=== PATIENT | female | born 1990 | race Caucasian/White ===

== ENCOUNTER 2020-11-09 14:16 | Inpatient (IN) | payer BC, SELFPAY ==
[2020-11-09] VITALS (73 sets, daily range): BP systolic 90–133; BP diastolic 54–87; PULSE 52–115; RESP 18; TEMP 36.4–37.2; O2SAT 88–100; BMI 25.7
[2020-11-09] MEDS: LACTATED RINGERS 1,000 ML 125 ML IV CONT (15:00)
[2020-11-09 15:07] LABS: Basophils Percent Auto 0.4 % (0.2-1.2); Eosinophils Absolute Auto 0.1 K/mm3 (0-0.3); Eosinophils Percent Auto 0.8 % (0-4.4); Hematocrit 38.8 % (37.0-47.0); Hemoglobin 12.8 g/dL (12.0-15.0); Immature Granulocyte Absolute 0.11 K/mm3 (0.00-0.031); Immature Granulocyte Percent A 1.5 % (0-0.5); Lymphocytes Absolute Auto 1.03 K/mm3 (0.9-3.2); Lymphocytes Percent Auto 14.4 % (18.3-44.2); Mean Corpuscular Hemoglobin 27.9 pg (26-34); Mean Corpuscular Volume 84.7 fl (80-100); Mean Platelet Volume 9.6 fl (7.4-10.4); Monocytes Absolute Auto 0.7 K/mm3 (0.1-0.6); Monocytes Percent Auto 9.3 % (2.6-8.5); Neutrophils Absolute Auto 5.2 K/mm3 (1.3-6.7); Neutrophils Percent Auto 73.6 % (45.5-73.1); Platelet Count Result 189 k/mm3 (150-375); Red Blood Count 4.58 M/mm3 (4.2-5.4); Red Cell Distribution Width 17.5 % (11.5-14.5); White Blood Count 7.1 K/mm3 (4.5-10.0)
--- NOTE | 2020-11-09 15:37 | WPDANESEPPF ---
Anes - Initial Pre Proc Eval Date/Time: 11/09/20 15:37 Surgeon: Roberth Vargas MD Pre Op Diagnosis: labor Patient Data Age: 29 Gender: F Height: Weight: Last Vital Signs Pulse 81 11/09/20 15:35 BP 113/72 11/09/20 15:35 Pulse Ox 100 11/09/20 15:33 Allergies Allergy/AdvReac Type Severity Reaction Status Date / Time amoxicillin Allergy Unknown Unverified 01/04/18 14:50 Penicillins Allergy Unknown Unverified 01/04/18 14:50 Home Medications Medication Instructions Recorded Confirmed Type PNV cmb#95-ferrous fumarate-FA 1 tablet PO DAILY 10/17/20 10/17/20 History [] ferrous sulfate [Iron (ferrous 325 mg PO DAILY 10/17/20 10/17/20 History sulfate)] loratadine [Claritin] 10 mg PO DAILY 10/17/20 10/17/20 History Laboratory Tests 11/09/20 11/09/20 14:59 14:59 WBC 7.1 K/mm3 K/mm3 (4.5-10.0) RBC 4.58 M/mm3 M/mm3 (4.2-5.4) Hgb 12.8 g/dL g/dL (12.0-15.0) Hct 38.8 % % (37.0-47.0) MCV 84.7 fl fl (80-100) MCH 27.9 pg pg (26-34) MCHC 33.0 g/dl g/dl (32-36) RDW 17.5 % H % (11.5-14.5) Plt Count 189 k/mm3 k/mm3 (150-375) MPV 9.6 fl fl (7.4-10.4) Immature Gran % (Auto) 1.5 % H % (0-0.5) Neut % (Auto) 73.6 % H % (45.5-73.1) Lymph % (Auto) 14.4 % L % (18.3-44.2) [place] % (Auto) 9.3 % H % (2.6-8.5) Eos % (Auto) 0.8 % % (0-4.4) Baso % (Auto) 0.4 % % (0.2-1.2) Lymph # (Auto) 1.03 K/mm3 K/mm3 (0.9-3.2) [place] # (Auto) 0.7 K/mm3 H K/mm3 (0.1-0.6) Eos # (Auto) 0.1 K/mm3 K/mm3 (0-0.3) Baso # (Auto) 0.0 K/mm3 K/mm3 (0.0-0.1) Abs Immat Gran (auto) 0.11 K/mm3 H K/mm3 (0.00-0.031) Absolute Neuts (auto) 5.2 K/mm3 K/mm3 (1.3-6.7) Absolute Nucleated RBC 0.0 K/mm3 K/mm3 (0.0-0.012) Nucleated RBC % 0.0 % % (0.0-0.2) RPR Pending Patient hx anesthesia problems: none Family hx anesthesia problems: none [facility] Family History Family History (Updated 10/17/20 @ 14:39 by Maira Chou RN) Father Hypertension Social History Social History Substance use: never Gender identity (if verbalized by the patient): Female Spiritual care concerns: No Anes - Eval Final PreProcedure Day of Procedure 11/09/20 15:37 Patient weight: overweight Heart: regular rate and rhythm Lungs: clear to auscultation and normal air movement Airway: Mallampati scale class II Neurological: alert and oriented Last oral intake: >/= 8 hours ASA classification: II Emergent: no Anesthetic plan: proceed Anesthesia type and monitoring: regional epidural Informed Consent: The patient's anesthetic plan and its attendant risks and benefits were discussed with the patient/family/POA. Questions were solicited and answers provided to the satisfaction of the patient/family/POA.
--- NOTE | 2020-11-09 16:08 | LDADM ---
This patient, Monse Tellez, was admitted to Labor/Delivery/Recovery 109 on 11/09/20 at 14:16. Plans for labor, pain management and were discussed with patient. Patient/family oriented to hospital policies and general routines including ID bracelet, bed and alarms, visiting hours, pain management, procedures, bathroom and other care routines, personal items, smoking policy, room service/diet and guest tray routines, security routines, call light, and visiting hours. Patient/Family are encouraged to report perceived risks to care and to ask questions if they do not understand what they are told or what they should do. See OBIX for further documentation.
--- NOTE | 2020-11-09 17:37 | PM.IMHP ---
H&P: HPI History of Present Illness Date/Time: 11/09/20 17:37 Chief Complaint: Patient is 2 para 1 at 39-,2/7 weeks gestation with spontaneous rupture membranes prior to admission. Her has been uncomplicated. She is negative for group B strep Review of Systems Review of Systems: All systems reviewed & are unremarkable except as noted in HPI and below PMFSH Family History Family History Father Hypertension Social History Social History Smoking status: Never smoker Substance use: never Gender identity (if verbalized by the patient): Female Spiritual care concerns: No Meds Home Medications and Allergies Home Medications Medication Instructions Recorded Confirmed Type PNV cmb#95-ferrous fumarate-FA 1 tablet PO DAILY 10/17/20 10/17/20 History [] ferrous sulfate [Iron (ferrous 325 mg PO DAILY 10/17/20 10/17/20 History sulfate)] loratadine [Claritin] 10 mg PO DAILY 10/17/20 10/17/20 History Allergies Allergy/AdvReac Type Severity Reaction Status Date / Time amoxicillin Allergy Unknown Rash Verified 11/09/20 15:45 Penicillins Allergy Unknown Rash Verified 11/09/20 15:45 Vital Signs Vital Signs - 24 hr 11/09/20 14:37 11/09/20 15:00 11/09/20 15:15 Temperature 98.9 F Pulse Rate 76 70 Blood Pressure 127/80 118/75 Pulse Oximetry 11/09/20 15:18 11/09/20 15:23 11/09/20 15:27 Temperature Pulse Rate 79 Blood Pressure 116/75 Pulse Oximetry 100 100 11/09/20 15:28 11/09/20 15:30 11/09/20 15:33 Temperature Pulse Rate 78 71 52 L Blood Pressure 126/74 117/75 99/74 L Pulse Oximetry 100 100 11/09/20 15:35 11/09/20 15:37 11/09/20 15:38 Temperature Pulse Rate 81 76 Blood Pressure 113/72 123/72 Pulse Oximetry 100 11/09/20 15:40 11/09/20 15:42 11/09/20 15:43 Temperature Pulse Rate 80 76 Blood Pressure 123/73 113/65 Pulse Oximetry 100 11/09/20 15:45 11/09/20 15:47 11/09/20 15:48 Temperature Pulse Rate 88 75 Blood Pressure 119/76 125/72 Pulse Oximetry 100 11/09/20 15:50 11/09/20 15:52 11/09/20 15:54 Temperature Pulse Rate 74 Blood Pressure 119/73 Pulse Oximetry 100 100 11/09/20 15:55 11/09/20 15:59 11/09/20 16:00 Temperature Pulse Rate 72 77 Blood Pressure 124/73 123/80 Pulse Oximetry 100 11/09/20 16:04 11/09/20 16:05 11/09/20 16:09 Temperature Pulse Rate 74 Blood Pressure 125/87 Pulse Oximetry 100 100 11/09/20 16:10 11/09/20 16:14 11/09/20 16:15 Temperature Pulse Rate 87 74 Blood Pressure 112/74 112/78 Pulse Oximetry 100 11/09/20 16:19 11/09/20 16:20 11/09/20 16:24 Temperature Pulse Rate 88 Blood Pressure 115/85 Pulse Oximetry 100 100 11/09/20 16:27 11/09/20 16:29 11/09/20 16:30 Temperature Pulse Rate 64 62 Blood Pressure 100/54 L 90/62 L Pulse Oximetry 100 11/09/20 16:34 11/09/20 16:35 11/09/20 16:39 Temperature Pulse Rate 77 Blood Pressure 100/63 Pulse Oximetry 100 100 11/09/20 16:44 11/09/20 16:45 11/09/20 16:49 Temperature Pulse Rate 69 Blood Pressure 105/60 Pulse Oximetry 100 100 11/09/20 16:54 11/09/20 16:59 11/09/20 17:00 Temperature 97.7 F Pulse Rate 71 Blood Pressure 116/73 Pulse Oximetry 100 100 11/09/20 17:04 11/09/20 17:08 11/09/20 17:09 Temperature Pulse Rate Blood Pressure Pulse Oximetry 100 100 91 11/09/20 17:10 11/09/20 17:11 11/09/20 17:15 Temperature Pulse Rate 72 Blood Pressure 109/81 Pulse Oximetry 100 100 11/09/20 17:16 11/09/20 17:21 11/09/20 17:26 Temperature Pulse Rate Blood Pressure Pulse Oximetry 98 97 100 11/09/20 17:28 11/09/20 17:29 11/09/20 17:30 Temperature Pulse Rate 87 Blood Pressure 101/78 Pulse Oximetry 100 96 11/09/20 17:34 Temperature Pulse Rate Blo
[2020-11-09] MEDS: OXYTOCIN 30 UNITS/NS 500 ML 30 UNITS/500 ML BAG 999 UNITS IV CONT (17:56)
--- NOTE | 2020-11-09 18:05 | PM.OBPRVD ---
OB - Delivery Note Procedure Delivery date: 11/09/20 Intrapartal events: None Induction method: none Delivery monitor: external FHT Route of delivery: Episiotomy description: None Laceration Description: Perineal - 1st Degree Delivery repair: vicryl Specimen: No Quantitative Blood Loss (ml): 58 Anesthesia type: Epidural Disposition: floor Baby Date of : 11/09/20 Time of : 17:53 Weeks of gestation at delivery: 39 gender: Male Weight (pounds): 9 Weight (ounces): 6 presentation: vertex position: Right Occiput Anterior Placenta delivery description: Spontaneous cord vessel description: 3 Vessels score one minute: 8 score five minutes: 9
[2020-11-09] MEDS: OXYTOCIN 30 UNITS/NS 500 ML 30 UNITS/500 ML BAG 125 UNITS IV CONT (18:27)
[2020-11-09] MEDS: IBUPROFEN 600 MG TABLET PO (20:06)
[2020-11-09] MEDS: BENZOCAINE 20% AER SPR (*SP) 56 GM CAN 1 SPRAY TOPICAL (20:07)
[2020-11-09] MEDS: WITCH HAZEL 40 PADS 1 PAD TOPICAL (20:07)
--- NOTE | 2020-11-09 21:03 | PC.NURSE ---
Patient transferred to post room #282 via wheel chair. Support person present. Oriented to unit, room, information board, rooming in, admission packet and security measures. Patient verbalizes understanding.
[2020-11-10 00:50] VITALS: BP 111/69; PULSE 79; RESP 16; TEMP 36.7; O2SAT 98
[2020-11-10] MEDS: IBUPROFEN 600 MG TABLET PO ×3 (01:17→16:49)
[2020-11-10 04:57] VITALS: BP 111/74; PULSE 84; RESP 18; TEMP 36.2; O2SAT 99
[2020-11-10 05:00] LABS: Hematocrit 35.3 % (37.0-47.0); Hemoglobin 11.6 g/dL (12.0-15.0)
--- NOTE | 2020-11-10 06:49 | PM.OBPNVD ---
OB - PN: Subj Subjective Date/time seen: 11/10/20 06:49 Patient comments: no complaints and pain well controlled baby status: doing well and nursing well OB - PN: Obj Data Labs CBC & Chem 7: 11/10/20 04:45 Labs: Laboratory Results - last 24 hr 11/09/20 11/09/20 11/10/20 14:59 14:59 04:45 WBC 7.1 RBC 4.58 Hgb 12.8 11.6 L Hct 38.8 35.3 L MCV 84.7 MCH 27.9 MCHC 33.0 RDW 17.5 H Plt Count 189 MPV 9.6 Immature Gran % (Auto) 1.5 H Neut % (Auto) 73.6 H Lymph % (Auto) 14.4 L [place] % (Auto) 9.3 H Eos % (Auto) 0.8 Baso % (Auto) 0.4 Lymph # (Auto) 1.03 [place] # (Auto) 0.7 H Eos # (Auto) 0.1 Baso # (Auto) 0.0 Abs Immat Gran (auto) 0.11 H Absolute Neuts (auto) 5.2 Absolute Nucleated RBC 0.0 Nucleated RBC % 0.0 Blood Type AB Positive Antibody Screen Negative OB - PN A/P Plan day: 1 Plan: routine care, discharge home and follow up 6 weeks Time Spent With Patient Time: Total time spent is greater than 50% in coordination of care (as documented) at patient's floor/unit and/or counseling patient: Time with patient: less than 15 minutes Review of Systems Review of Systems: All systems reviewed & are unremarkable except as noted in HPI and below Exam Const: General: no acute distress Eyes: General: appearance normal, both eyes and all related structures Neck: Neck: supple and no JVD Thyroid: thyroid normal Resp: Effort & Inspection: normal respiratory effort Auscultation: clear to auscultation bilaterally Cardio: Rate: regular rate Rhythm: regular rhythm GI: Inspection: non-distended GI Palp: Yes Soft to palpation, No Tenderness to palpation present (GI) and No Guarding due to palpation present (GI) Auscultation: normal bowel sounds : General: Yes bladder normal to palpation External Female Exam: normal external appearance Speculum Exam - Vagina: normal vaginal discharge and No vaginal bleeding Speculum Exam - Cervix: nontender Bimanual exam- vagina & uterus: bladder normal to palpation and No Cervical tenderness present OB/external & speculum: No vaginal bleeding Skin: General skin exam: no rashes or lesions noted Extrem: General: normal to inspection and no edema Psych: Mental Status: mental status grossly normal Affect: normal affect
--- NOTE | 2020-11-10 06:50 | PM.DS ---
DS: Admitting Diagnosis Admitting Diagnosis Admitting Diagnosis: the patient was admitted active labor. She underwent spontaneous vaginal delivery which was unremarkable. DS: Summary Hospital Course Hospital Course: The patient had an unremarkable course after a spontaneous vaginal delivery. Time Spent with Patient Time attestation: Total time spent providing and/or coordinating discharge services: Exam Const: General: no acute distress Eyes: General: appearance normal, both eyes and all related structures Neck: Neck: supple and no JVD Thyroid: thyroid normal Resp: Effort & Inspection: normal respiratory effort Auscultation: clear to auscultation bilaterally Cardio: Rate: regular rate Rhythm: regular rhythm GI: Inspection: non-distended GI Palp: Yes Soft to palpation, No Tenderness to palpation present (GI) and No Guarding due to palpation present (GI) Auscultation: normal bowel sounds : General: Yes bladder normal to palpation External Female Exam: normal external appearance Speculum Exam - Vagina: normal vaginal discharge and No vaginal bleeding Speculum Exam - Cervix: nontender Bimanual exam- vagina & uterus: bladder normal to palpation and No Cervical tenderness present OB/external & speculum: No vaginal bleeding Skin: General skin exam: no rashes or lesions noted Extrem: General: normal to inspection and no edema Psych: Mental Status: mental status grossly normal Affect: normal affect DS: Data Data Completed and Pending Labs on day of discharge: Labs from last 24 hours 11/10/20 11/09/20 11/09/20 04:45 14:59 14:59 WBC RBC Hgb 11.6 L Hct 35.3 L MCV MCH MCHC RDW Plt Count MPV Immature Gran % (Auto) Neut % (Auto) Lymph % (Auto) [place] % (Auto) Eos % (Auto) Baso % (Auto) Lymph # (Auto) [place] # (Auto) Eos # (Auto) Baso # (Auto) Abs Immat Gran (auto) Absolute Neuts (auto) Absolute Nucleated RBC Nucleated RBC % RPR Pending Blood Type AB Positive Antibody Screen Negative 11/09/20 14:59 WBC 7.1 RBC 4.58 Hgb 12.8 Hct 38.8 MCV 84.7 MCH 27.9 MCHC 33.0 RDW 17.5 H Plt Count 189 MPV 9.6 Immature Gran % (Auto) 1.5 H Neut % (Auto) 73.6 H Lymph % (Auto) 14.4 L [place] % (Auto) 9.3 H Eos % (Auto) 0.8 Baso % (Auto) 0.4 Lymph # (Auto) 1.03 [place] # (Auto) 0.7 H Eos # (Auto) 0.1 Baso # (Auto) 0.0 Abs Immat Gran (auto) 0.11 H Absolute Neuts (auto) 5.2 Absolute Nucleated RBC 0.0 Nucleated RBC % 0.0 RPR Blood Type Antibody Screen Discharge Plan Discharge Attending physician on discharge: Roberth Vargas Discharging Clinician: Roberth Vargas Patient Disposition: Home, Self-Care Activity: may shower and pelvic rest Diet: heart healthy Wound Care Instructions: follow printed instructions Patient Instructions: Antibiotic Form Stand Alone Forms: General Discharge Information Follow-up/Referrals: Roberth Vargas MD [Physician] - Discharge Medications: No Action ferrous sulfate [Iron (ferrous sulfate)] 325 mg (65 mg iron) Tablet 325 mg PO DAILY RF: 0 loratadine [Claritin] 10 mg Tablet 10 mg PO DAILY RF: 0 PNV cmb#95-ferrous fumarate-FA [] 28 mg iron- 800 mcg Tablet 1 tablet PO DAILY RF: 0 Date of admission: 11/09/20 14:16 Primary Care Provider: PHYSICIAN,SHEET METAL DUCT INSTALLER HELPER Admitting Provider: Roberth Vargas Attending physician on admission: Roberth Vargas Condition: Stable
[2020-11-10 07:40] VITALS: BP 109/76; PULSE 72; RESP 18; TEMP 36.4
[2020-11-10] MEDS: DOCUSATE SODIUM 100 MG CAPSULE PO (08:36)
[2020-11-10] MEDS: MULTIVIT/MIN/PREN/FOL AC/IRON TABLET 1 TAB PO (08:36)
[2020-11-10 12:05] VITALS: BP 114/80; PULSE 71; RESP 18; TEMP 36.3
[2020-11-10 16:50] VITALS: BP 118/76; PULSE 68; RESP 18; TEMP 36.5
[2020-11-11 07:17] LABS: Rapid Plasma Reagin Non-Reactive (NonReactive)
[2020-11-12 09:01] VITALS: BP 102/71; PULSE 69; RESP 16; TEMP 36.8; O2SAT 100
== END 2020-11-10 19:38 | disposition home or self-care (01) | DRG 807 ==
LOC: ANHLDR 14:47 → ANHOB2 21:05
PROVIDERS: Admitting Provider Obstetrics & Gynecology; Visit Provider Obstetrics & Gynecology
DX: O70.0 First degree perineal laceration during delivery (principal); Z37.0 Single live birth; Z3A.39 39 weeks gestation of pregnancy
CPT/HCPCS: 36415; 84112; 85014; 85018; 85025; 86592; 86850; 86900; 86901; A9270; J2590; J2795; J7120

== ENCOUNTER 2023-11-23 07:40 | Inpatient (IN) | payer BC, SELFPAY ==
[2023-11-23] VITALS (171 sets, daily range): BP systolic 80–133; BP diastolic 40–100; PULSE 26–164; RESP 18; TEMP 36.2–37.1; O2SAT 80–100
--- NOTE | 2023-11-23 07:40 | LDADM ---
This patient, Monse Tellez, was admitted to Labor/Delivery/Recovery 103 on 11/23/23 at 07:40. Plans for labor, pain management and were discussed with patient. Patient/family oriented to hospital policies and general routines including ID bracelet, bed and alarms, visiting hours, pain management, procedures, bathroom and other care routines, personal items, smoking policy, room service/diet and guest tray routines, security routines, and visiting hours. Patient/Family are encouraged to report perceived risks to care and to ask questions if they do not understand what they are told or what they should do. See OBIX for further documentation.
--- NOTE | 2023-11-23 08:42 | WPDOBADMIT ---
Obstetrics - Admit Note Admission Note: record reviewed. Additions to the history and/or subsequent changes in the physical findings follow. 32 y/o at 38 1/7 weeks gestation here after a gush of fluid at 0610. GBS neg. Feeling some contractions. AVSS NST reactive TOCO: irregular contractions ABD soft, nontender, gravid, vertex EXT nontender Cervix 2/50/-3. AROM forebag with clear fluid. Vertex. A: IUP at term with SROM. P: Augment labor as needed. Anticipate .
[2023-11-23 09:08] LABS: Basophils Absolute Auto 0.1 K/mm3 (0.0-0.1); Basophils Percent Auto 0.7 % (0.2-1.2); Eosinophils Absolute Auto 0.1 K/mm3 (0-0.3); Eosinophils Percent Auto 0.8 % (0-4.4); Hematocrit 35.1 % (37.0-47.0); Hemoglobin 11.4 g/dL (12.0-15.0); Immature Granulocyte Absolute 0.15 K/mm3 (0.00-0.031); Lymphocytes Absolute Auto 1.14 K/mm3 (0.9-3.2); Lymphocytes Percent Auto 15.2 % (18.3-44.2); Mean Corpuscular HGB Conc 32.5 g/dl (32-36); Mean Corpuscular Hemoglobin 27.1 pg (26-34); Mean Corpuscular Volume 83.6 fl (80-100); Mean Platelet Volume 9.9 fl (7.4-10.4); Monocytes Absolute Auto 0.6 K/mm3 (0.1-0.6); Monocytes Percent Auto 7.3 % (2.6-8.5); Neutrophils Absolute Auto 5.6 K/mm3 (1.3-6.7); Platelet Count Result 202 k/mm3 (150-375); Red Cell Distribution Width 15.9 % (11.5-14.5); White Blood Count 7.5 K/mm3 (4.5-10.0)
--- NOTE | 2023-11-23 12:25 | PM.OBPNLAB ---
Pain Control Date/time seen: 11/23/23 12:25 Feeling some contractions, irregular. AVSS NST reactive TOCO: irregular contractions Begin labor augmentation.
[2023-11-23] MEDS: LACTATED RINGERS 1,000 ML 125 ML IV CONT ×3 (12:39→15:20)
[2023-11-23] MEDS: OXYTOCIN 30 UNITS/NS 500 ML 30 UNITS/500 ML BAG IV CONT (12:39)
--- NOTE | 2023-11-23 13:06 | WPDANESEPP ---
Anes - Eval Pre Procedure Procedure: labor Epidural Date/Time: 11/23/23 13:06 Surgeon: Nathalie Preop Diagnosis: Pain during labor Pre Op Diagnosis: labor Patient Data Age: 32 Gender: F Height: Weight: Last Vital Signs Temp 36.4 C 11/23/23 09:00 Pulse 74 11/23/23 12:59 BP 103/65 11/23/23 12:59 O2 Del Method Room Air 11/23/23 09:13 Allergies Allergy/AdvReac Type Severity Reaction Status Date / Time amoxicillin Allergy Unknown Rash Verified 11/08/23 12:30 Penicillins Allergy Unknown Rash Verified 11/08/23 12:30 Home Medications Medication Instructions Recorded Confirmed Type loratadine 10 mg tablet (Claritin) 10 mg PO DAILY 10/17/20 11/08/23 History vit no.95-ferrous 1 tablet PO DAILY 10/17/20 11/08/23 History fumarate 28 mg-folic acid 800 mcg tablet () ferrous sulfate 325 mg (65 mg 65 mg PO DAILY 11/08/23 11/08/23 History iron) tablet (FeroSul) Laboratory Tests 11/23/23 08:59 WBC 7.5 K/mm3 (4.5-10.0) RBC 4.20 M/mm3 (4.2-5.4) Hgb 11.4 L g/dL (12.0-15.0) Hct 35.1 L % (37.0-47.0) MCV 83.6 fl (80-100) MCH 27.1 pg (26-34) MCHC 32.5 g/dl (32-36) RDW 15.9 H % (11.5-14.5) Plt Count 202 k/mm3 (150-375) MPV 9.9 fl (7.4-10.4) Immature Gran % (Auto) 2.0 H % (0-0.5) Neut % (Auto) 74.0 H % (45.5-73.1) Lymph % (Auto) 15.2 L % (18.3-44.2) [place] % (Auto) 7.3 % (2.6-8.5) Eos % (Auto) 0.8 % (0-4.4) Baso % (Auto) 0.7 % (0.2-1.2) Lymph # (Auto) 1.14 K/mm3 (0.9-3.2) [place] # (Auto) 0.6 K/mm3 (0.1-0.6) Eos # (Auto) 0.1 K/mm3 (0-0.3) Baso # (Auto) 0.1 K/mm3 (0.0-0.1) Abs Immat Gran (auto) 0.15 H K/mm3 (0.00-0.031) Absolute Neuts (auto) 5.6 K/mm3 (1.3-6.7) Absolute Nucleated RBC 0.000 K/mm3 (0.0-0.012) Nucleated RBC % 0.0 % (0.0-0.2) RPR Pending Blood Type AB Positive Antibody Screen Negative Patient hx anesthesia problems: none Family hx anesthesia problems: none Results Review: All pre-operative results and documents have been reviewed as part of the pre-operative evaluation. PMFSH Family History Family History Father Hypertension Social History Social History Smoking status: Never smoker Second hand tobacco smoke exposure: No Substance use: never Do You Feel Safe in your Home?: Yes Lack of Transportation: No Lack of Food: Never True Current Housing: I Have Housing Concerned About Future Housing: No Difficulty Paying Gas/Electric Bills: No Difficulty Paying for Meds: No Currently Unemployed: No Education: Bachelor's Degree Difficulty w/ Childcare or Family Care: No Gender identity (if verbalized by the patient): Female Spiritual care concerns: No Exam Day of Procedure 11/23/23 13:06 Patient weight: normal Heart: regular rate and rhythm Lungs: normal air movement Airway: Mallampati scale class II Neurological: alert and oriented
[2023-11-23 13:16] LABS: Rapid Plasma Reagin Non-Reactive (NonReactive)
[2023-11-23] MEDS: PHENYLEPHRINE 1,000 MCG/10 ML SYRINGE 100 MCG IV PUSH (14:55)
[2023-11-23] MEDS: ONDANSETRON INJ 4 MG/2 ML VIAL IV PUSH (15:24)
--- NOTE | 2023-11-23 16:42 | PM.OBPNLAB ---
Pain Control Date/time seen: 11/23/23 16:42 Comments: Now comfortable with epidural. Pelvic Exam Dilation (cm): 3 Effacement (%): 50 station: -2 Comments: AROM forebag with clear fluid. IUPC placed. Contractions Contraction frequency: 3 Status status: Category l Assessment and Plan Pitocin rate (mU/min): 8 Comments: Continue labor augmentation.
[2023-11-23] MEDS: SODIUM CHLORIDE 0.9% IV 300 ML 600 ML I-UTERINE (20:39)
--- NOTE | 2023-11-23 22:30 | PM.OBPRVD ---
OB - Vaginal Delivery Note Procedure Delivery date: 11/23/23 Induction method: None Delivery augmentation: Pitocin Delivery monitor: External FHT, External Uterine and Internal Uterine Route of delivery: Episiotomy description: None Laceration Description: Perineal - 2nd Degree Delivery repair: vicryl (3-0) Specimen: Yes (cord blood) Quantitative Blood Loss (ml): 320 Anesthesia type: Epidural Disposition: PACU Complications: None Narrative: 32 y/o at 38 1/7 weeks gestation who presented to the hospital after a gush of clear fluid. SROM was diagnosed. After observation, labor was augmented with IV oxytocin, and AROM of a forebag was performed with return of clear fluid. She received an epidural for pain control. Her labor progressed and her cervix dilated completely. She pushed with good effort and delivered the 's head to the perineum, followed by the body. The nose and mouth were bulb suctioned. After a delay, the cord was clamped and cut. The was handed off the field. Cord blood was collected. The placenta delivered spontaneously and was grossly normal in appearance. The usual 3 vessel cord was noted. A second degree midline perineal laceration was sustained. This was reapproximated using 3 0 Vicryl in the usual layered fashion. Excellent hemostasis resulted as did excellent reapproximation of the normal anatomy. Needle and instrument counts were correct. The patient was taken to recovery room in stable condition. The went to the nursery in stable condition. I was present and scrubbed for the entire delivery. [place] Baby Date of : 11/23/23 Time of : 22:05 Weeks of gestation at delivery: 38 Infant gender: Male Weight (pounds): 8 Weight (ounces): 3 presentation: vertex position: Right Occiput Anterior Placenta delivery description: Spontaneous and Normal Configuration Cord Vessel Description: 3 Vessels and Delayed Cord Clamping score one minute: 8 score five minutes: 8
--- NOTE | 2023-11-23 22:33 | PM.OBDSVD ---
DS: Admitting Diagnosis Discharge Date 11/25/23 Admitting Diagnosis IUP at 38 1/7 weeks SROM DS: Discharge Diagnosis Discharge Diagnosis (1) (normal spontaneous vaginal delivery): Code(s): O80 - Encounter for full-term uncomplicated delivery Status: Acute OB - DS: Summary OB Procedures : None OB Procedures Intrapartum: Spontaneous Vag Delivery OB Procedures: : None Peripartum Data Laceration Description: Perineal - 2nd Degree Episiotomy description: None Time Spent with Patient Time attestation: Total time spent providing and/or coordinating discharge services: DS: Data Data Completed and Pending Labs on day of discharge: Labs from last 24 hours 11/23/23 08:59 WBC 7.5 RBC 4.20 Hgb 11.4 L Hct 35.1 L MCV 83.6 MCH 27.1 MCHC 32.5 RDW 15.9 H Plt Count 202 MPV 9.9 Immature Gran % (Auto) 2.0 H Neut % (Auto) 74.0 H Lymph % (Auto) 15.2 L [place] % (Auto) 7.3 Eos % (Auto) 0.8 Baso % (Auto) 0.7 Lymph # (Auto) 1.14 [place] # (Auto) 0.6 Eos # (Auto) 0.1 Baso # (Auto) 0.1 Abs Immat Gran (auto) 0.15 H Absolute Neuts (auto) 5.6 Absolute Nucleated RBC 0.000 Nucleated RBC % 0.0 RPR Non-reactive Blood Type AB Positive Antibody Screen Negative Discharge Plan Discharge Attending physician on discharge: Cyrus Zelaya Discharging Clinician: Cyrus Zelaya Patient Disposition: Home, Self-Care Activity: pelvic rest Diet: regular Discharge Instructions: Call or return if temperature above 100.4? F, increased abdominal pain, increased vaginal bleeding or any new problems. Stand Alone Forms: General Discharge Information Follow-up/Referrals: Cyrus Zelaya MD [Physician] - 6 Weeks Discharge Medications: New ibuprofen 600 mg tablet 600 mg PO Q6H PRN (Reason: cramps) Qty: 30 0RF Continued ferrous sulfate [FeroSul] 325 mg (65 mg iron) tablet 65 mg PO DAILY loratadine [Claritin] 10 mg Tablet 10 mg PO DAILY PNV cmb#95-ferrous fumarate-FA [] 28 mg iron- 800 mcg Tablet 1 tablet PO DAILY Date of admission: 11/23/23 07:40 Primary Care Provider: PHYSICIAN,BASEBALL COACH Admitting Provider: Cyrus Zelaya Attending physician on admission: Cyrus Zelaya Condition: Stable
[2023-11-23] MEDS: OXYTOCIN 30 UNITS/NS 500 ML 30 UNITS/500 ML BAG 125 UNITS IV CONT (22:36)
[2023-11-24] VITALS (8 sets, daily range): BP systolic 96–109; BP diastolic 50–68; PULSE 54–66; RESP 16–18; TEMP 36.6–37.1; O2SAT 97–100
[2023-11-24] MEDS: WITCH HAZEL 40 PADS 1 PAD TOPICAL (00:25)
[2023-11-24] MEDS: BENZOCAINE 20% AER SPR (*SP) 56 GM CAN 1 SPRAY TOPICAL (00:25)
--- NOTE | 2023-11-24 00:46 | PC.NURSE ---
Patient transferred to post room #288 via (W/C ). Support person present. Oriented to unit, room, information board, rooming in, admission packet and security measures. Patient verbalizes understanding.
[2023-11-24] MEDS: IBUPROFEN 600 MG TABLET PO ×3 (03:18→16:51)
[2023-11-24 05:42] LABS: Hematocrit 32.8 % (37.0-47.0); Hemoglobin 10.5 g/dL (12.0-15.0)
[2023-11-24] MEDS: ACETAMINOPHEN 325 MG TABLET 650 MG PO ×3 (07:12→20:00)
--- NOTE | 2023-11-24 07:48 | WPDANLDPN2 ---
Anes-Prog Note L&D Date/Time: 11/24/23 07:48 Comfortable throughout: labor and delivery Neuraxial method: epidural Epidural/Spinal procedure site: clean & non-tender Neuro status: Neuro function grossly intact. Cardiovascular status: normal Respiratory status: normal Airway patency: baseline Mental status: baseline Post-Op hydration status: normal Vital Signs: Last Vital Signs Temp 97.9 F 11/24/23 05:10 Pulse 62 11/24/23 05:10 Resp 18 11/24/23 05:10 BP 97/59 L 11/24/23 05:10 Pulse Ox 99 11/24/23 05:10 O2 Del Method Room Air 11/24/23 02:00 Pain score (VAS): 0/10 I/O: Intake & Output 11/23/23 11/23/23 11/24/23 15:59 23:59 07:59 Intake Total 1120.8 Output Total 320 160 Balance 1120.8 -320 -160 Post-procedural complaints: none Patient feedback: Patient satisfied with anesthetic care.
[2023-11-24] MEDS: DOCUSATE SODIUM 100 MG CAPSULE PO ×2 (09:13→16:52)
[2023-11-24] MEDS: MULTIVIT/MIN/PREN/FOL AC/IRON TABLET 1 TAB PO (09:13)
--- NOTE | 2023-11-24 09:41 | PC.NURSE ---
On 11/24/23, the student, Cleo Stanton, provided care and completed [facility] documentation on this patient. I have reviewed the student's documentation and agree with the findings.
--- NOTE | 2023-11-24 16:07 | PC.NURSE ---
[id number] Introductions were made, then consulted with patient to assess needs related to . Discussed with mother her?plans to feed?her infant and the?experience so far. Encouraged understanding of the benefits of skin to skin (demonstrating unwrapping infant and placing upright on her chest), stimulating with massage touch, changing positions to encourage wakefulness, how to watch for early feeding cues, responsive feeding, feeding on demand (aiming for 8-12 times in 24 hours, about every 2-3 hours), milk production, building/maintaining a milk supply, duration of feeding, signs of adequate intake/output and how to record on the feeding sheet. Mother is confident and knowledgeable regarding . We discussed mothers questions and concerns about pumping in a few weeks. Resources used for education were facilitated with the visual educational handouts/mom and baby guide. Inpatient/outpatient resources provided with feeding sheet, name written on the communication board, and the mom/baby guide. Parents voiced understanding of information, demonstrated learning and will call if there is a request for assistance.
--- NOTE | 2023-11-24 17:03 | PM.OBPNVD ---
OB - PN: Subj Subjective Date/time seen: 11/24/23 17:03 Narrative: Pain OK. Would like circumcision for son. OB - PN: Obj Data Labs 11/24/23 05:33 Labs: Laboratory Results - last 24 hr 11/24/23 05:33 Hgb 10.5 L Hct 32.8 L OB - PN A/P Plan day: 1 Comments: A: PPD#1, doing well. P: Routine care. Reviewed circ. Exam Psych: Other: AVSS ABD soft, nontender, fundus firm EXT nontender
[2023-11-25] MEDS: IBUPROFEN 600 MG TABLET PO (02:30)
[2023-11-25] MEDS: MULTIVIT/MIN/PREN/FOL AC/IRON TABLET 1 TAB PO (06:54)
[2023-11-25] MEDS: DOCUSATE SODIUM 100 MG CAPSULE PO (06:54)
[2023-11-25] MEDS: ACETAMINOPHEN 325 MG TABLET 650 MG PO (06:57)
--- NOTE | 2023-11-25 07:25 | PM.OBPNVD ---
OB - PN: Subj Subjective Date/time seen: 11/25/23 07:25 Narrative: Pain OK. Would like to go home. OB - PN: Obj Data Labs 11/24/23 05:33 OB - PN A/P Plan Comments: A: PPD#2, doing well. P: Home to f/u 6 weeks. Exam Psych: Other: AVSS ABD soft, nontender, fundus firm EXT nontender
[2023-11-25 08:20] VITALS: BP 107/72; PULSE 66; RESP 18; TEMP 36.3; O2SAT 100
[2023-11-26 08:33] VITALS: BP 108/73; PULSE 65; RESP 18; TEMP 36.9; O2SAT 100
== END 2023-11-25 10:26 | disposition home or self-care (01) | DRG 807 ==
LOC: ANHLDR 22:34 → ANHOB2 11-24 00:57
PROVIDERS: Admitting Provider Obstetrics & Gynecology; Visit Provider Obstetrics & Gynecology
DX: O70.1 Second degree perineal laceration during delivery (principal); Z37.0 Single live birth; Z3A.38 38 weeks gestation of pregnancy
CPT/HCPCS: 36415; 84112; 85014; 85018; 85025; 86592; 86850; 86900; 86901; A9270; J2371; J2405; J2590; J2795; J7030; J7120